=== PATIENT | male | born 1995 | race African-American/Black ===

== ENCOUNTER 2018-06-18 13:50 | Emergency (ER) | payer MEDICAID ==
[~2018-06-18] VITALS: Ht 177.8 cm; Wt 65.8 kg
[2018-06-18 15:11] VITALS: BP 126/78
== END 2018-06-18 15:44 | disposition home or self-care (01) ==
LOC: ER 13:50
DX: B20 Human immunodeficiency virus [HIV] disease (principal); Z76.0 Encounter for issue of repeat prescription